=== PATIENT | female | born 2000 | race African-American/Black ===

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

== ENCOUNTER → 2021-09-17 | Outpatient (REF) | payer BC ==
[2021-09-17 23:29] LABS: GC DNA AMPLIFICATION NEGATIVE (NEGATIVE)
== END ==
LOC: M LAB REF 21:05
PROVIDERS: ATTEND Physician Assistant
DX: R30.0 Dysuria (principal)

== ENCOUNTER → 2021-10-21 | Outpatient (REF) | payer BC ==
[2021-10-21 14:55] LABS: HEPATITIS B SURFACE ANTIGEN NEGATIVE (NEGATIVE); HEPATITIS C VIRUS ABY INDEX 0.1 INDEX (<0.8); HIV 1&2 SCREEN CENTAUR NEGATIVE (NEGATIVE)
[2021-10-22 20:07] LABS: HSV IgM TYPES 1&2 1.97 Ratio (0.00-0.90); HSV TYPE I IgG SPECIFIC <0.91 index (0.00-0.90); HSV TYPE II IgG SPECIFIC 3.25 index (0.00-0.90)
== END ==
LOC: M LAB REF 12:56
PROVIDERS: ATTEND Advanced Practice Midwife
DX: Z01.419 Encounter for gynecological examination (general) (routine) without abnormal findings (principal)

== ENCOUNTER → 2024-02-13 | Outpatient (REF) | payer BC ==
[2024-02-13 17:37] LABS: HEMATOCRIT 35.7 % (36.0-47.0); HEMOGLOBIN 11.8 g/dl (12.0-15.5); MEAN CORPUSCULAR HEMOGLOBIN 28.2 pg (27.0-33.0); MEAN CORPUSCULAR HGB CONC 33.1 g/dl (32.0-36.5); MEAN CORPUSCULAR VOLUME 85.4 fl (80.0-96.0); PLATELET COUNT, AUTOMATED 292 10^3/uL (150-450); RED BLOOD COUNT 4.18 10^6/uL (4.00-5.40); WHITE BLOOD COUNT 14.6 10^3/uL (4.0-10.0)
[2024-02-13 18:21] LABS: HIV 1&2 SCREEN NEGATIVE (NEGATIVE)
[2024-02-13 18:28] LABS: HEPATITIS C VIRUS ABY INDEX < 0.02 INDEX (<0.8)
[2024-02-13 18:32] LABS: HCG, SERUM QUANTITATIVE 89762.4 MIU/ML (<4.2)
== END ==
LOC: M LAB REF 16:20
PROVIDERS: ATTEND Obstetrics & Gynecology
DX: O36.80X0 Pregnancy with inconclusive fetal viability, not applicable or unspecified (principal); Z32.01 Encounter for pregnancy test, result positive; Z3A.00 Weeks of gestation of pregnancy not specified

== ENCOUNTER → 2024-02-29 | Outpatient (CLI) | payer BC | LOC: M RAD 12:26 | PROVIDERS: ATTEND Obstetrics & Gynecology | DX: O36.80X0 Pregnancy with inconclusive fetal viability, not applicable or unspecified (principal); Z32.01 Encounter for pregnancy test, result positive; Z3A.12 12 weeks gestation of pregnancy ==

== ENCOUNTER → 2024-03-26 | Outpatient (CLI) | payer BC | LOC: M RAD 11:35 | PROVIDERS: ATTEND Obstetrics & Gynecology | DX: Z34.82 Encounter for supervision of other normal pregnancy, second trimester (principal); Z3A.16 16 weeks gestation of pregnancy ==

== ENCOUNTER → 2024-05-02 | Outpatient (CLI) | payer BC, OTHER | LOC: M RAD 14:10 | PROVIDERS: ATTEND Advanced Practice Midwife | DX: Z34.82 Encounter for supervision of other normal pregnancy, second trimester (principal); Z3A.21 21 weeks gestation of pregnancy ==

== ENCOUNTER → 2024-06-04 | Outpatient (CLI) | payer BC, OTHER | LOC: M RAD 13:09 | PROVIDERS: ATTEND Obstetrics & Gynecology | DX: Z34.82 Encounter for supervision of other normal pregnancy, second trimester (principal); Z3A.26 26 weeks gestation of pregnancy ==

== ENCOUNTER → 2024-06-18 | Outpatient (CLI) | payer BC, OTHER ==
[2024-06-18 13:12] LABS: HEMATOCRIT 34.9 % (36.0-47.0); HEMOGLOBIN 11.2 g/dl (12.0-15.5); MEAN CORPUSCULAR HGB CONC 32.1 g/dl (32.0-36.5); MEAN CORPUSCULAR VOLUME 87.3 fl (80.0-96.0); PLATELET COUNT, AUTOMATED 255 10^3/uL (150-450); WHITE BLOOD COUNT 12.8 10^3/uL (4.0-10.0)
== END ==
LOC: M WUC 08:59
PROVIDERS: ATTEND Obstetrics & Gynecology
DX: Z34.82 Encounter for supervision of other normal pregnancy, second trimester (principal)

== ENCOUNTER → 2024-07-09 | Outpatient (CLI) | payer BC, OTHER | LOC: M WHC 10:39 | PROVIDERS: ATTEND Obstetrics & Gynecology | DX: Z34.83 Encounter for supervision of other normal pregnancy, third trimester (principal); Z3A.31 31 weeks gestation of pregnancy ==

== ENCOUNTER → 2024-07-25 | Outpatient (CLI) | payer BC | LOC: M WHC 14:17 | PROVIDERS: ATTEND Advanced Practice Midwife | DX: O36.5993 Maternal care for other known or suspected poor fetal growth, unspecified trimester, fetus 3 (principal); Z3A.33 33 weeks gestation of pregnancy ==

== ENCOUNTER → 2024-08-06 | Outpatient (REF) | payer BC, MEDICAID | LOC: M LAB REF 16:15 | PROVIDERS: ATTEND Obstetrics & Gynecology | DX: Z34.83 Encounter for supervision of other normal pregnancy, third trimester (principal) ==

== ENCOUNTER → 2024-08-20 | Outpatient (CLI) | payer BC | LOC: M WHC 12:05 | PROVIDERS: ATTEND Advanced Practice Midwife | DX: O36.5990 Maternal care for other known or suspected poor fetal growth, unspecified trimester, not applicable or unspecified (principal) ==

== ENCOUNTER 2024-09-13 07:46 | Inpatient (IN) | payer BC ==
[~2024-09-13] VITALS: Ht 172.7 cm; Wt 73.2 kg
[2024-09-13] VITALS (14 sets, daily range): BP systolic 106–151; BP diastolic 69–90
[2024-09-13] MEDS ORDERED: VALA1TAB5 PO (08:14)
[2024-09-13] MEDS ORDERED: MULTTAB20 PO (08:14)
[2024-09-13] MEDS ORDERED: HOME MED LIST COMPLETE! XX SCH (08:15)
[2024-09-13] MEDS ORDERED: CARBOPROST TROMETHAMINE 250 MCG/ML AMP IM PRN (08:45)
[2024-09-13] MEDS ORDERED: METHYLERGONOVINE MALEATE 0.2MG/ML 1ML VIAL IM PRN (08:45)
[2024-09-13] MEDS ORDERED: LIDOCAINE 1% MDV 20ML VIAL INFIL PRN (08:45)
[2024-09-13] MEDS ORDERED: TRANEXAMIC ACID INJection 1,000 MG in NS 100 ML IV PRN (08:45)
[2024-09-13 09:13] LABS: BASO % 0.2 % (0.0-1.0); EOS # 0.1 10^3/uL (0.0-0.5); EOS % 0.7 % (0.0-3.0); HEMATOCRIT 33.5 % (36.0-47.0); HEMOGLOBIN 11.1 g/dl (12.0-15.5); LYMPH # 1.8 10^3/uL (1.5-5.0); LYMPH % 13.4 % (24.0-44.0); MEAN CORPUSCULAR HEMOGLOBIN 27.8 pg (27.0-33.0); MEAN CORPUSCULAR HGB CONC 33.1 g/dl (32.0-36.5); MEAN CORPUSCULAR VOLUME 83.8 fl (80.0-96.0); MONO # 0.8 10^3/uL (0.0-0.8); MONO % 6.4 % (2.0-8.0); NEUTROPHILS # 10.3 10^3/uL (1.5-8.5); NEUTROPHILS % 78.5 % (36.0-66.0); PLATELET COUNT, AUTOMATED 242 10^3/uL (150-450); WHITE BLOOD COUNT 13.1 10^3/uL (4.0-10.0)
[2024-09-13] MEDS: miSOPROStol 50MCG 1/2 TABLET PO ONE (09:36)
[2024-09-13 10:23] LABS: HEPATITIS C VIRUS ABY INDEX 0.05 INDEX (<0.8)
[2024-09-13] MEDS: miSOPROStol 50MCG 1/2 TABLET PO SCH (13:36)
[2024-09-13] MEDS: LR 1,000 ML IV SCH (22:39)
[2024-09-13] MEDS: BUTORPHANOL 2 MG/ML 1ML VIAL IV ONE (22:39)
[2024-09-13] MEDS: PROMETHAZINE 25MG/ML 1ML VIAL IV ONE (22:40)
[2024-09-14] VITALS (44 sets, daily range): BP systolic 85–142; BP diastolic 50–100; O2SAT 98–99
[2024-09-14] MEDS ORDERED: EPIDURAL/PCA KEYS XX PRN (01:50)
[2024-09-14] MEDS ORDERED: ONDANSETRON 4MG 2ML VIAL IV PRN (01:50)
[2024-09-14] MEDS ORDERED: NALOXONE INJ 0.4MG/1ML VIAL IV PRN (01:50)
[2024-09-14] MEDS ORDERED: LR 500 ML IV PRN (01:50)
[2024-09-14] MEDS ORDERED: diphenhydrAMINE 50MG/ML VIAL IV PRN (01:50)
[2024-09-14] MEDS: FENTANYL/ROPIVACAINE/NACL BAG 100 ML EPIDURAL SCH (02:41)
[2024-09-14] MEDS ORDERED: OXYTOCIN DRIP 30 UNITS in IV 1 EA IV SCH (03:00)
[2024-09-14] MEDS: ePHEDrine SULFATE 25 MG/5 ML(5MG/ML) SYRINGE IVP PRN (03:00)
[2024-09-14] MEDS: OXYTOCIN DRIP 30 UNITS in IV 1 EA IV SCH (03:22)
[2024-09-14] MEDS: valACYclovir HCL 500 MG TAB PO SCH (10:52)
[2024-09-14 14:52] LABS: CORD GAS ABE A -11.6; CORD GAS ABE V -11.8; CORD GAS HCO3 A 16.7 MMOL/L; CORD GAS HCO3 V 16.3 MMOL/L; CORD GAS O2 SAT A 64.2 %; CORD GAS O2 SAT V 50.7 %; CORD GAS PCO2 A 46.1 mmHg; CORD GAS PCO2 V 44.6 mmHg; CORD GAS PH A 7.177 UNITS; CORD GAS PH V 7.181 UNITS; CORD GAS PO2 A 33.3 mmHg; CORD GAS PO2 V 25.2 mmHg; CORD GAS SBC A 14.9 MMOL/L; CORD GAS SBC V 14.5 MMOL/L; CORD GAS TCO2 A 18.1 MMOL/L; CORD GAS TCO2 V 17.7 MMOL/L
[2024-09-14] MEDS ORDERED: IBUPROFEN 600MG TAB PO PRN (15:00)
[2024-09-14] MEDS ORDERED: DOCUSATE SODIUM 100MG CAPSULE PO PRN (15:00)
[2024-09-14] MEDS ORDERED: RHOGAM 300MCG (1500IU) INJ IM SCH (15:00)
[2024-09-14] MEDS ORDERED: DIBUCAINE 1% OINTMENT 30GM TOP PRN (15:00)
[2024-09-14] MEDS ORDERED: METHYLERGONOVINE MALEATE 0.2 MG TAB PO PRN (15:00)
[2024-09-14] MEDS ORDERED: ACETAMINOPHEN 325 MG TAB PO PRN (15:00)
[2024-09-14] MEDS: IBUPROFEN 800 MG TAB PO PRN (15:24)
[2024-09-14] MEDS: ACETAMINOPHEN 500 MG TAB PO PRN (16:57)
[2024-09-15 05:50] VITALS: BP 123/85; O2SAT 97
[2024-09-15] MEDS: PRENATAL VITAMINS CHEWABLE TABLET PO SCH (09:00)
[2024-09-15] MEDS: BOOSTRIX VACCINE (TETANUS/DIPHTH/ACEL. PERTUSSIS) 0.5ML SYR IM.IMMUN ONE (16:59)
[2024-09-15 18:00] VITALS: BP 134/85; O2SAT 99
[2024-09-16 06:21] VITALS: BP 134/90; O2SAT 98
[2024-09-16] MEDS ORDERED: IBUP80TA PO (07:56)
[2024-09-16] MEDS ORDERED: ACET-683 PO (07:56)
[2024-09-16] MEDS ORDERED: MEASLES,MUMPS,RUBELLA VACCINE INJ (MMR-II) SC.IMMUN ONE (09:00)
[2024-09-16 10:00] VITALS: BP 145/92; O2SAT 97
[2024-09-16] MEDS: FLUZONE VACCINE TRIVALENT PF(2024-25) 0.5ML SYRINGE IM.IMMUN ONE (12:58)
== END 2024-09-16 14:15 | disposition home or self-care (01) | DRG 560 ==
LOC: M LDI 07:46 → M OBS 09-14 16:32
PROVIDERS: ADMIT Obstetrics & Gynecology; ATTEND Obstetrics & Gynecology
PROC: 3E0P7VZ Introduction of Hormone into Female Reproductive, Via Natural or Artificial Opening (ICD-10-PCS; 2024-09-13)
PROC: 3E033VJ Introduction of Other Hormone into Peripheral Vein, Percutaneous Approach (ICD-10-PCS; 2024-09-13)
PROC: 10E0XZZ Delivery of Products of Conception, External Approach (ICD-10-PCS; principal; 2024-09-14)
DX: O36.5990 Maternal care for other known or suspected poor fetal growth, unspecified trimester, not applicable or unspecified (principal); O48.0 Post-term pregnancy; Z37.0 Single live birth; Z3A.41 41 weeks gestation of pregnancy; Z88.0 Allergy status to penicillin; Z88.8 Allergy status to other drugs, medicaments and biological substances